=== PATIENT | female | born 1975 | race Caucasian/White ===

== ENCOUNTER 2025-03-17 15:42 | Outpatient (REF) | payer MEDICAID, OTHER, SELFPAY ==
--- OUTSIDE RECORDS SUMMARY | 2025-03-17 15:15 | XMS_ITS | Encounter Summary ---
Author Organization [employer] [facility] Address [address] [facility] 7t [place] [address] Care Team Providers Care Paper Products Printer Name Role Phone Lucas Burgos MD Primary Care Provider [phone] Reason for Referral * Imaging (Routine) - Authorized Specialty Diagnoses / Procedures Referred By Contac t Referred To Contact Radiology Diagnoses Memory disturbance Procedures CT Head w/o Contrast Lucas Burgos MD [address] [place] [address] Phone: tel: fax: [address] [phone] Phone: tel: fax: Referral ID Status Reason Start Date Expiration Date V isits Requested Visits Authorized [id number] Authorized 03/17/2025 03/17/2026 1 1 Reason for Visit * Reason Comments Hypertension Encounter Details Date Type Department Care Team (Late st Contact Info) Description 03/17/2025 3:15 PM EST Office Visit [facility] & [facility]EDS [address] [place], [place] [phone] Lucas Burgos MD [address] [place], [place] [phone] Primary hypertension (Primary Dx); Memory disturbance Social History Tobacco Use Types Packs/Day Years Used Date Smoking Tobacco: Never Smokeless Tobacco: Never Depression Answer Date Recorded Patient Health Questionnaire-9 Score 0 11/14/2022 Housing Stability Answer Date Recorded What is your housing situation today? Not on kurt e 02/10/[address] you li ve. Do you have problems with any of the following? None of the above 02/10/2023 Food Insecurity Answer Date Recorded Within the past 12 months, y ou worried that your food would run out before you got money to buy more: Never True 02/10/2023 Within the past 12 months,th e food you bought just didn't last and you didn't have enough money to get more: Never True 09/2022 Utilities Answer Date Recorded In the past 12 months, has t he [employer], gas, oil or water company threatened to shut off services in your home? No 02/10/2023 Depression Answer Date Recorded Patient Health Questionnaire-2 Score 0 11/14/2022 Comments Unknown Sex and Gender Information Value Date Recorded Sex Assigned at Female 02/04/2022 10:34 AM EDT Legal Sex Female 10:34 AM EDT Gender Identity Female 02/04/2022 10:34 AM EDT Sexual Orientation Straight 02/22/2025 10 :01 AM EST documented as of this encounter Last Filed Vital Signs Vital Sign Reading Time Taken Comments Blood Pressure 154/100 03/17/2025 3:25 PM EST Pulse 76 03/17/2025 3:25 PM EST Temperature 36.8 C (98.2 F) 03/17/2025 3:25 PM EST Respiratory Rate 21 03/17/2025 3:25 PM EST Oxygen Saturation 98% 03/17/2025 3:25 PM EST Inhaled Oxygen Concentration - - Weight 55.3 kg (122 lb) 03/17/2025 3:25 PM EST Height 150.8 cm (4' 11.38 ) 03/17/2025 3:[address] Body Mass Index 24.33 03/17/2025 3:25 PM EST documented in this encounter Progress Notes * Lucas Burgos MD - 03/17/2025 3:15 PM EST SUBJECTIVE Connor Tabares is a 49 y.o. female who presents for Hypertension. Hypertension Pertinent negatives include no chest pain. - Connor Tabares, 49-year-old female - History of hypertension; antihypertensive regimen includes losartan and a diuretic (???water pill?? ); typically taken at night - Reports increased urination with the diuretic - Home blood pressure reported as low at times (e.g., systolic 113 on the morning of visit) - Notes memory difficulties for approximately 2 years; ???always forgetting stuff really quick,?? frequently misplaces phone Problem List[1] Allergies[2] Medications Ordered Prior to Encounter[3] Review of Systems Constitutional: Negative for activity change, appetite change, chills and diaphoresis. HENT: Negative for dental problem, drooling, ear discharge, ear pain and hearing loss. Eyes: Negative for pain, discharge and itching. Respiratory: Negative for cough, choking and chest tightness. Cardiovascular: Negative for chest pain and leg swelling. Gastrointestinal: Negative for blood in stool and diarrhea. Genitourinary: Negative for difficulty urinating, dyspareunia, dysuria, enuresis, flank pain, frequency and genital sores. Musculoskeletal: Negative for arthralgias, gait problem and joint swelling. Skin: Negative for pallor. Neurological: Negative for dizziness, seizures, speech difficulty, light- headedness and numbness. Psychiatric/Behavioral: Negative for behavioral problems, confusion and decreased concentration. OBJECTIVE There were no vitals filed for this visit. Physical Exam Constitutional: General: She is not in acute distress. Appearance: Normal appearance. She is not ill-appearing, toxic-appearing or diaphoretic. Cardiovascular: Rate and Rhythm: Normal rate. Heart sounds: No murmur heard. Pulmonary: Effort: Pulmonary effort is normal. No respiratory distress. Breath sounds: No stridor. Neurological: General: No focal deficit present. Mental Status: She is alert. Psychiatric: Mood and Affect: Mood normal. Assessment/Plan Assessment/Plan Diagnoses and all orders for this visit: Primary hypertension - amLODIPine (Norvasc) 5 MG tablet; Take 1 tablet (5 mg) by mouth Once per day. Memory disturbance - Vitamin B12/Folate, Serum Panel; Future - CT Head w/o Contrast; Future Primary hypertension: - Blood pressure remains elevated despite current antihypertensive regimen, but has improved from previous measurement (from 194 mmHg to 154 mmHg). No adjustment to antihypertensive medication at this time. - Monitor blood pressure at home every day or every other day, 2 hours after taking antihypertensive medication. Record blood pressure readings and bring records to next visit. If blood pressure remains consistently above 140 mmHg, initiate additional antihypertensive medication after 2 weeks. No medication changes at this time. Follow-up scheduled in 3 months. Memory disturbance: - Memory disturbance noted, with progressive forgetfulness over approximately 2 years. - Ordered laboratory tests to evaluate for reversible causes, including assessment of kidney, liver, thyroid function, anemia, and vitamin B12 levels. Will call with laboratory results. Will order CTscan of the brain to evaluate for structural causes. No follow-up appointment scheduled at this time for memory disturbance; will contact with results. This note was drafted using Ambient (AI) technology. The patient/patient's guardian has been informed and has consented to the use of this technology: Yes [1] Patient Active Problem List Diagnosis Hypertensive disorder [2] No Known Allergies [3] Current Outpatient Medications on File Prior to Visit Medication Sig Dispense Refill chlorthalidone (Hygroton) 25 MG tablet Take 1 tablet (25 mg) by mouth Once per day. 30 tablet 11 losartan (Cozaar) 100 MG tablet Take 1 tablet (100 mg) by mouth Once per day. 30 tablet 11 No current facility-administered medications on file prior to visit. documented in this encounter Plan of Treatment Upcoming Encounters Date Type Department Care Team (Late st Contact Info) Description 08/11/2025 1:00 PM EDT Office Visit [facility] OPTOMETRY [address] [place] [address] Jayjay, Nilsa, OD [address] [place] [address] Scheduled Orders Name Type Priority Associated Diagnoses Orde r Schedule Vitamin B12/Folate, Serum Panel Lab Routine Memory disturbance Expected: 03/17/2025, Expires: 03/17/2026 CT Head w/o Contrast Imaging Routine Memory disturbance Expected: 03/17/2025, Expires: 03/17/2026 documented as of this encounter Visit Diagnoses Diagnosis Primary hypertension- Primary Unspecified essential hypertension Memory disturbance Memory loss documented in this encounter Additional Health Concerns Assessment Noted Time PHQ-9 Depression Total Score: 0 11/15/19 23 9:28 AM EDT documented as of this encounter Care Teams Paper Products Printer Relationship Specialty Start Date End Date Lucas Burgos MD [address] [place] [phone] PCP - General Internal Medicine 07/13/21 documented as of this encounter
[2025-03-17 17:50] LABS: MANUAL DIFF FLAG NO
[2025-03-17 18:20] LABS: Alanine Aminotransferase 28 U/L (0-31); Albumin Level 4.2 g/dL (3.5-5.0); Alkaline Phosphatase 55 U/L (39-117); Anion Gap 11 (12-20); Aspartate Amino Transferase 59 U/L (5-31); Blood Urea Nitrogen 24 mg/dL (9-16); Calcium 9.0 mg/dL (8.4-10.2); Carbon Dioxide 28 mmol/L (22-29); Chloride 102 mmol/L (96-108); Cholesterol 205 mg/dL (<200); Estimated Glomerular Filt Rate 38; HDL Cholesterol 45 mg/dL (>40); Potassium 3.8 mmol/L (3.3-5.1); Sodium 137 mmol/L (135-145); Total Protein 7.2 g/dL (6.5-8.0); Triglycerides 315 mg/dL (<150)
[2025-03-17 18:24] LABS: Hematocrit 36.2 % (37.0-47.0); Hemoglobin 11.9 g/dl (12.0-16.0); Imm Gran Abs Auto 0.04 X10*3/uL (0.00-0.03); Imm Gran Pct Auto 0.4 % (0.0-0.4); Lymphocytes Absolute Auto 2.5 X10*3/uL (1.2-4.9); Mean Corpuscular HGB Conc 32.9 g/dl (31.0-35.0); Mean Corpuscular Hemoglobin 29.2 pg (27.0-33.0); Mean Corpuscular Volume 88.9 fL (80.0-98.0); NRBC Abs Auto 0.000 X10*3/uL (0.0-0.012); NRBC Pct Auto 0.0 /100WBC (0.0-0.2); Platelet Count 334 X10*3/uL (160-400); Red Blood Count 4.07 X10*6/uL (4.20-5.50); White Blood Count 10.0 X10*3/uL (4.8-10.8)
[2025-03-17 18:49] LABS: Folate 7.8 ng/mL (> or = 4.0); Vitamin B12 408 pg/mL (200-900)
--- OUTSIDE RECORDS SUMMARY | 2025-03-17 23:10 | XMS_ITS | Encounter Summary ---
Author Organization [employer] [facility] Address [address] [facility] 7t [place] [address] Care Team Providers Care Intellectual Property Lawyer Name Role Phone Lucas Burgos MD Primary Care Provider [phone] Encounter Details Date Type Department Care Team (Latest Contact Info) Description 04/12/2021 Abstract [facility] Dental, Provider, DDS Social History Tobacco Use Types Packs/Day Years Used Date Smoking Tobacco: Never Assessed Comments Unknown Sex and Gender Information Value Date Recorded Sex Assigned at Female 02/04/2022 10:34 AM EDT Legal Sex Female 10:34 AM EDT Gender Identity Female 02/04/2022 10:34 AM EDT Sexual Orientation Straight 02/22/2025 10 :01 AM EST documented as of this encounter Plan of Treatment Upcoming Encounters Date Type Department Care Team (Late st Contact Info) Description 08/11/2025 1:00 PM EDT Office Visit [facility] OPTOMETRY [address] [place] [address] Jayjay, Nilsa, OD [address] [place] [address] documented as of this encounter Visit Diagnoses Not on filedocumented in this encounter Care Teams Intellectual Property Lawyer Relationship Specialty Start Date End Date Lucas Burgos MD [address] [place] [id number] PCP - General Internal Medicine 07/13/21 documented as of this encounter
--- OUTSIDE RECORDS SUMMARY | 2025-03-17 23:10 | XMS_ITS | Encounter Summary ---
Author Organization [employer] [facility] Address [address] [facility] 7t [place] [address] Care Team Providers Care Ballet Soloist Name Role Phone Lucas Burgos MD Primary Care Provider Encounter Details Date Type Department Care Team (Latest Contact Info) Description 10/07/2018 Abstract [facility] Dental, Provider, DDS Social History [...] Description 08/11/2025 1:00 PM EDT Office Visit [facility] OPTOMETRY [address] [place] [address] JayjayNilsa payan, OD [address] [place] [address] documented as of this encounter Visit Diagnoses Not on filedocumented in this encounter Care Teams Ballet Soloist Relationship Specialty Start Date End Date Lucas Burgos MD [address] [place] [address] PCP - General Internal Medicine 07/13/21 documented as of this encounter
--- OUTSIDE RECORDS SUMMARY | 2025-03-17 23:10 | XMS_ITS | Encounter Summary ---
Author Organization [employer] [facility] Address [address] [place] [address] Care Team Providers Care Internet Network Specialist Name Role Phone Lucas Burgos MD Primary Care Provider Encounter Details Date Type Department Care Team (Latest Contact Info) Description 03/17/2025 Travel Social History Tobacco Use Types Packs/Day Years [...] the past 12 months, has t he electric, gas, oil or water company threatened to [...] Description 08/11/2025 1:00 PM EDT Office Visit [facility] OPTOMETRY [address] [place] [address] Jayjay, Nilsa, OD [address] [place] [address] documented as of this encounter Visit Diagnoses Not on filedocumented in this encounter Additional Health Concerns Assessment Noted Time PHQ-9 Depression Total Score: 0 11/15/19 23 9:28 AM EDT documented as of this encounter Care Teams Internet Network Specialist Relationship Specialty Start Date End Date Lucas Burgos MD [address] [place] [id number] PCP - General Internal Medicine 07/13/21 documented as of this encounter
--- OUTSIDE RECORDS SUMMARY | 2025-03-17 23:10 | XMS_ITS | Clinical Summary ---
Author Organization [employer] Address [address] [place] [address] Care Team Providers Care Photographic Laboratory Technician Name Role Phone Lucas Burgos MD Primary Care Provider Allergies No known active allergies Medications chlorthalidone (Hygroton) 25 MG tabletIndication s:Primary hypertension Take 1 tablet (25 mg) by mouth Once per day. 30 tablet 11 5 2:14 PM EST 02/18/20 25 026 Active losartan (Cozaar) 100 MG tabletIndication s:Primary hypertension Take 1 tablet (100 mg) by mouth Once per day. 30 tablet 11 5 2:14 PM EST 02/18/20 25 026 Active amLODIPine (Norvasc) 5 MG tabletIndication s:Primary hypertension Take 1 tablet (5 mg) by mouth Once per day. 30 tablet 11 03/17/20 25 026 Active chlorthalidone (Hygroton) 25 MG tabletIndication s:Primary hypertension Take 1 tablet (25 mg) by mouth in the morning. 30 tablet 11 10/03/19 23 025 Discontinued(Re order (will not trigger notification to Pharmacy)) losartan (Cozaar) 50 MG tablet TAKE 1 TABLET BY MOUTH EVERY MORNING FOR BLOOD PRESSURE 90 tablet 1 06/23/19 25 025 Discontinued(Re order (will not trigger notification to Pharmacy)) losartan (Cozaar) 50 MG tabletIndication s:Primary hypertension TAKE 1 TABLET BY MOUTH EVERY MORNING FOR BLOOD PRESSURE 90 tablet 1 02/18/20 25 025 Discontinued Active Problems Problem Noted Date Diagnosed Date Hypertensive disorder 01/06/2023 Encounters Date Type Department Care Team Description 03/17/2025 3:15 PM EST Office Visit [facility] & PEDS [address] [place] [address] Lucas Burgos MD Primary hypertension (Primary Dx); Memory disturbance 03/17/2025 Travel 03/16/2025 Telephone [facility] [address] [place] [address] Lucas Burgos MD chart prep 02/17/2025 4:00 PM EST Office Visit [facility] [address] [place] [address] Lucas Burgos MD Encounter for screening mammogram for malignant neoplasm of breast (Primary Dx); Primary hypertension 02/17/2025 Travel 02/10/2025 Patient Outreach [facility] [address] [place] [address] Lucas Burgos MD Pre-visit Planning (Pre visit planning LVM ) from Last 3 Months Immunizations Immunization Administration Dates Next Due Hep B, adult 03/10/2018 Influenza injectable quadriv alent IIV4 with preservative 12/24/2017 MMR 09/12/2017 Pneumococcal Polysaccharide PPSV23 09/12/2017 Tdap 09/12/2017 Family History Medical History Relation Name Comments Diabetes type II Father Hypertension Father Diabetes type II Mother Hypertension Mother Relation Name Status Comments Father Mother Social History Tobacco Use Types Packs/Day Years Used Date Smoking Tobacco: Never Smokeless Tobacco: Never Tobacco Cessation:Counseling Given: No Depression Answer Date Recorded Patient Health Questionnaire-9 [...] the past 12 months, has t he [employer], gas, oil or water [employer] threatened to shut off services in your home? No 02/10/2023 Depression Answer Date Recorded Patient Health Questionnaire-2 Score 0 11/14/2022 Comments Unknown Sex and Gender Information Value Date Recorded Sex Assigned at Female 02/04/2022 10:34 AM EDT Legal Sex Female 10:34 AM EDT Gender Identity Female 02/04/2022 10:34 AM EDT Sexual Orientation Straight 02/22/2025 10 :01 AM EST Last Filed Vital Signs Vital Sign Reading [...] Mass Index 24.33 03/17/2025 3:25 PM EST Plan of Treatment Upcoming Encounters Date Type Department Care Team (Late st Contact Info) Description 08/11/2025 1:00 PM EDT Office Visit [facility] OPTOMETRY [address] [place] [address] Jayjay, Nilsa, OD [address] [place] [address] Health Maintenance Due Date Last Done Comments CT Colonography 1977 Colonoscopy 1977 FIT DNA/Cologuard 1977 FIT 1977 FOBT 1977 HIV Screening 1977 Sigmoidoscopy 1977 Disability Screening 1977 Alcohol/Substance Use Screening 1989 Family Planning (PISQ) 1992 Pap Smear 1998 Mammogram 2017 Hepatitis B Vaccines (2 of 3 - 19+ 3-dose series) 04/07/2018 03/10/2018 Cervical Cancer Screening 01/06/2023 HPV/Cotest 01/06/2023 01/06/2018 Depression Screening 11/15/2023 11/14/2022, 11/14/2022 SDOH Screening 11/15/2023 11/14/2022 Influenza Vaccine (#1) 2025 12/24/2017 Postp oned from 12/06/2024 (Patient Refused) COVID-19 Vaccine (1 - 2024-2 6 season) 2026 Postponed from 12/06 (Patient Refused) Colorectal Cancer Screening 02/17/2026 Postponed from 1977 (Patient Refused) Tobacco Screening 03/17/2026 03/17/2025 Zoster Vaccines (1 of 2) 2027 DTaP/Tdap/Td Vaccines (2 - T d or Tdap) 09/13/2027 09/12/2017 Lipid Panel 11/15/2027 11/14/2022, 12/01/2019 RSV Patients and Patients Aged 60 years or older (1 - 1-dose 75+ series) 2052 Pneumococcal Vaccine: Pediatrics (0 to 5 Years) and At-Risk Patients (6 to 49) Years Aged Out 09/12/2017 No longer eligible b ased on patient's age to complete this topic Hepatitis C Screening Completed 01/06/2023 HIB Vaccines Aged Out No longer eligi ble based on patient's age to complete this topic HPV Vaccines Aged Out No longer eligi ble based on patient's age to complete this topic Hepatitis A Vaccines Aged Out No long er eligible based on patient's age to complete this topic IPV Vaccines Aged Out No longer eligi ble based on patient's age to complete this topic Meningococcal B Vaccine Aged Out No l onger eligible based on patient's age to complete this topic Meningococcal Vaccine Aged Out No marie ivanna eligible based on patient's age to complete this topic RSV under 20 months Aged Out No longe r eligible based on patient's age to complete this topic Rotavirus Vaccines Aged Out No longer eligible based on patient's age to complete this topic Procedures Procedure Name Priority Date/Time Associated Diagnosis Comments HEPATITIS PANEL, GENERAL Routine 01/06/2023 11:59 AM EDT Elevated liver function tests LIPID PANEL, STANDARD Routine 11/14/2022 10:06 AM EDT Primary hypertension HANY HISTORICAL HPV MRNA E6/E7 Routine 01/06/2018 12:00 AM EDT from Last 3 Months or Most Recently Relevant to Health Maintenance Results * Hepatitis Panel, General (01/06/2023 11:59 AM EDT) Hepatitis A IgM Nonreactive Nonreactive [facility] Comment:IgM antibodies to RON V not detected; does not exclude earlyacute or recovered HAV infection. ~Hepatitis B Surface Antibody REACTIVE Nonreactive [facility] Comment:REACTIVE: > 11.99 mI U/mL Hepatitis B Core Antibody Nonreactive Nonreactive [facility] Hepatitis C Antibody Nonreactive Nonreactive [facility] Comment:Antibodies to HCV no t detected; does not exclude early acuteHCV infection. Hepatitis B Surface Ag Negative Negative [facility] Blood 01/06/2023 11:5 9 AM EDT 01/06/2023 2:33 PM EDT us Lucas Burgos MD LAB BLOOD ORDERABLES Final Result [facility] [address] [place] [phone] * Lipid Panel, Standard (11/14/2022 10:06 AM EDT) Triglycerides 147 mg/dL [facility] Comment:Desirable Triglyceri de: less than 150 mg/dLBorderline High Triglyceride 150-199 mg/dLHigh Triglyceride: 200-499 mg/dLVery High Triglyceride: greater than or equal to 5OO mg/dL Cholesterol 208 mg/dL [facility] Comment:Desirable Cholestero l: less than 200 mg/dLBorderline High Cholesterol: 200-239 mg/dLHigh Cholesterol: greater than 239 mg/dL LDL Cholesterol Calculated 122 mg/dl [facility] Comment:Desirable LDL: less than 100 mg/dLNear Optimal/Above Optimal LDL: 110- 129 mg/dLBorderline High LDL: 130-159 mg/dLHigh LDL: 160-189 mg/dLVery High LDL: greater than or equal to 190 mg/dL HDL Cholesterol 57 mg/dL [facility] Comment:Desirable HDL: great er than 40 mg/dL Note: This HDL assay may give artificially low results in patients with liver disease. Blood Venous blood specimen / Unknown 11/14/2022 10:06 AM EDT 11/14/2022 2:51 PM EDT Lucas Burgos MD LAB BLOOD ORDERABLES Final Result [facility] [address] [place] [address] [phone] * (ABNORMAL) HPV mRNA E6/E7 (01/06/2018 12:00 AM EDT) HPV mRNA E6/E7 DETECTED (AA) NOT DETECTED [facility] Comment: This test was performed using the APTIMA(R) HPV Assay ([employer] This assay detects E6/E7 viral messenger RNA (mRNA) from 14 high-risk HPV types (16,18,31,33,35,39,45,51, 52,56,58,59,66,68). For additional information please refer to: http://education.Altar/faq/PGL647p7 (This link is being provided for informational/ educational purposes only.) The analytical performance characteristics of this assay have been determined by [facility] [place], [place]. The modifications have not been cleared or approved by the FDA. This assay has been validated pursuant to the CLIA regulations and is used for clinical purposes. Test Performed by [facility], [facility] [place], [address] [place] [address] Bertrand Sheriff M.D., Ph.D., Director of Laboratories , CLIA [id number] Please note: Effective 12/18/2015, HPV testing will be performed using [employer]'s APTIMA test which targets mRNA. Detecting mRNA instead of DNA, as in older methods, offers significant improvements in specificity. 01/06/2018 Amanda Gordon CNM HISTORICAL/NON ORDERABLE LABS Final Result [facility] [address] from Last 3 Months or Most Recently Relevant to Health Maintenance Insurance [facility] HSN FULL Care Teams Photographic Laboratory Technician Relationship Specialty Start Date End Date Lucas Burgos MD [address] [place] [address] [place] [address] PCP - General Internal Medicine 07/13/21
--- OUTSIDE RECORDS SUMMARY | 2025-03-17 23:10 | XMS_ITS | Encounter Summary ---
Author Organization [employer] Address [address] [facility] [address] [place] [address] Care Team Providers Care Tow Picker Name Role Phone Lucas Burgos MD Primary Care Provider [phone] Reason for Visit * Reason Onset Date Comments chart prep 03/16/2025 Encounter Details Date Type Department Care Team ([facility] st Contact Info) Description 03/16/2025 Telephone C [facility] [address] [place], [place] [phone] Lucas Burgos MD [address] [place], [place] [phone] chart prep Social History Tobacco Use Types Packs/Day Years [...] AM EST documented as of this encounter Miscellaneous Notes * Telephone Encounter - Antoinette Horne MA - 03/16/2025 4:34 PM EST Chart Prep Labs: not done Images: not applicable Referrals: not applicable Vaccines due: Hep B Screenings: mammogram and pap smear, STI Overdue care gaps: SBIRT, SDOH, PHQ-9, and Disability screen documented in this encounter Plan of Treatment Upcoming Encounters Date Type Department Care Team (Late st Contact Info) Description 08/11/2025 1:00 PM EDT Office Visit [facility] OPTOMETRY [address] [place] [address] Jayjay, Nilsa, OD [address] [place] [address] documented as of this encounter Visit Diagnoses Not on filedocumented in this encounter Additional Health Concerns Assessment Noted Time PHQ-9 Depression Total Score: 0 11/15/19 23 9:28 AM EDT documented as of this encounter Care Teams Tow Picker Relationship Specialty Start Date End Date Lucas Burgos MD [address] [place] [address] PCP - General Internal Medicine 07/13/21 documented as of this encounter
--- OUTSIDE RECORDS SUMMARY | 2025-03-17 23:10 | XMS_ITS | Encounter Summary ---
Author Organization [employer] [facility] Address [address] [facility] [address] [place] [address] Care Team Providers Care Paralegal Legal Secretary Name Role Phone Lucas Burgos MD Primary Care Provider Encounter Details Date Type Department Care Team (Late st Contact Info) Description 08/23/2022 Orders Only [facility]EDS [address] [place], [place] [phone] Suha Benjamin LPN Social History Tobacco Use Types Packs/Day Years [...] Description 08/11/2025 1:00 PM EDT Office Visit [facility] OPTOMETRY [address] [place] [address] Nilsa Ro, OD [address] [place] [address] documented as of this encounter Visit Diagnoses Not on filedocumented in this encounter Care Teams Paralegal Legal Secretary Relationship Specialty Start Date End Date Lucas Burgos MD [address] [place] [address] PCP - General Internal Medicine 07/13/21 documented as of this encounter
--- OUTSIDE RECORDS SUMMARY | 2025-03-17 23:10 | XMS_ITS | Encounter Summary ---
Author Organization [employer] Address [address] [place] [address] Care Team Providers Care Opticianry Teacher Name Role Phone Lucas Burgos MD Primary Care Provider Encounter Details Date Type Department Care Team (Late st Contact Info) Description 03/26/2023 Orders Only [facility] [address] [place], [place] [phone] Lucas Burgos MD [address] [place] [address] Primary hypertension Social History Tobacco Use Types Packs/Day Years [...] 1:00 PM EDT Office Visit [facility] [address] [place], [place] [phone] Jayjay, Nilsa, OD [address] [place] [address] documented as of this encounter Visit Diagnoses Diagnosis Primary hypertension Unspecified essential hypertension documented in this encounter Additional Health Concerns Assessment Noted Time PHQ-9 Depression Total Score: 0 11/15/19 23 9:28 AM EDT documented as of this encounter Care Teams Opticianry Teacher Relationship Specialty Start Date End Date Lucas Burgos MD [address] [place] [address] PCP - General Internal Medicine 07/13/21 documented as of this encounter
== END 2025-03-17 15:43 | disposition home or self-care (01) ==
LOC: HO.CHCLDS 15:42
PROVIDERS: PCP Internal Medicine; Visit Provider Internal Medicine
DX: I10 Essential (primary) hypertension (principal); R41.3 Other amnesia
CPT/HCPCS: 36415; 80053; 80061; 82607; 82746; 84443; 85025